=== PATIENT | female | born 2000 | race Hispanic/Latino ===

== ENCOUNTER → 2023-01-13 | Outpatient (CLI) | payer OTHER ==
[~2023-01-13] MED LIST: GADOTERATE MEGLUMINE 5 MMOL/10 ML VIAL IV ONE; IOHEXOL 180 MG/ML 20 ML VIAL ONE
== END | disposition home or self-care (01) ==
LOC: RAH 07:48
PROVIDERS: ATTEND Student in an Organized Health Care Education/Training Program
DX: M24.152 Other articular cartilage disorders, left hip (principal)
CPT/HCPCS: 73723; 77002; 27093; Q9965; A9575